=== PATIENT | male | born 1955 | race Two or more races ===

== ENCOUNTER 2024-02-24 06:40 | Emergency (ER) | payer MEDICARE, OTHER ==
[2024-02-24] MEDS ORDERED: Nitroglycerin 0.4 MG TAB 1 EACH ONE (06:55)
[2024-02-24] MEDS ORDERED: Aspirin Chewable 81 MG TAB ONE (06:55)
[2024-02-24] MEDS ORDERED: Heparin 25,000 units/D5W 500 ML ONE (07:13)
[2024-02-24] MEDS ORDERED: Heparin 10,000 UNITS/ 10 ML VIAL ONE (07:13)
[2024-02-24] MEDS ORDERED: Sodium Chloride 0.9% 1,000 ML ONE (07:14)
[2024-02-24 07:21] LABS: INR-International Normal Ratio 0.9; Prothrombin Time 12.4 sec (12.0-14.7)
[2024-02-24 07:30] LABS: ALT (SGPT) 21 U/L (8-55); AST (SGOT) 22 U/L (5-34); Albumin 3.7 g/dL (3.4-4.8); Alkaline Phosphatase 52 U/L (40-110); Anion Gap 12 mmol/L (10-20); BUN (Urea Nitrogen) 22 mg/dL (8.4-25.7); Bilirubin, Total 0.4 mg/dL (0.2-1.2); Calc. Creatinine Clearance 0 mL/min (70-130); Calcium 9.2 mg/dL (7.8-10.44); Carbon Dioxide 23 mmol/L (23-31); Chloride 110 mmol/L (98-107); Estimated GFR 82; Globulin 3.1 g/dL (2.4-3.5); Glucose 141 mg/dL (80-115); Potassium 4.2 mmol/L (3.5-5.1); Protein, Total 6.8 g/dL (5.8-8.1); Sodium 141 mmol/L (136-145)
[2024-02-24 07:31] LABS: Troponin I Less than 0.010 ng/mL (< 0.028)
[2024-02-24 07:39] LABS: PTT 23.4 sec (22.9-36.1)
[2024-02-24 07:49] LABS: Band 6 % (5-11); Eosinophils 1 % (0-10); Hematocrit 44.8 % (42.0-52.0); Lymphocytes 32 % (21-51); MDiff Complete? YES; Mean Corpuscular HGB CONC 31.2 g/dL (32.0-36.0); Mean Corpuscular Hemoglobin 29.6 pg (27.0-31.0); Mean Corpuscular Volume 94.8 fl (78.0-98.0); Mean Platelet Volume 7.5 fL (7.4-10.4); Monocytes 6 % (0-10); Neutrophil 54 % (42-75); Platelet Adequacy Comment Appears Adequate; Platelet Count 245 10x3/uL (130-400); RBC Distribution Width 13.8 % (11.5-14.5); Red Blood Cell (RBC) Count 4.73 mill/uL (4.70-6.10); White Blood Cell (WBC) Count 14.3 10x3/uL (4.8-10.8)
== END 2024-02-24 07:29 | disposition short-term general hospital (02) ==
LOC: MADERS 06:40
DX: I21.29 ST elevation (STEMI) myocardial infarction involving other sites (principal); F17.210 Nicotine dependence, cigarettes, uncomplicated
CPT/HCPCS: 80053; 83880; 84484; 85025; 85610; 85730; 93005; 94760; 96374; 96376; J1644; J7030

== ENCOUNTER 2025-02-24 09:03 | Outpatient (CLI) | payer MEDICARE ==
[2025-02-24 09:30] LABS: ALT (SGPT) 51 U/L (Less than 45); AST (SGOT) 36 U/L (11-34); Albumin 3.9 g/dL (3.1-4.5); Alkaline Phosphatase 59 U/L (40-110); Anion Gap 13 mmol/L (10-20); BUN (Urea Nitrogen) 19 mg/dL (8.4-25.7); Bilirubin, Total 0.4 mg/dL (0.3-1.2); Calc. Creatinine Clearance 0 mL/min (70-130); Calcium 9.2 mg/dL (7.8-10.44); Carbon Dioxide 24 mmol/L (23-31); Cardiac Risk 3.1 (Less than 4.5); Chloride 109 mmol/L (98-107); Cholesterol 105 mg/dl (< 200 Desired); Globulin 3.8 g/dL (2.4-3.5); Glucose 105 mg/dL (80-115); HDL Cholesterol 34 mg/dL (>60 Neg Risk); LDL Cholesterol, Calculated 42 mg/dL; Potassium 4.3 mmol/L (3.5-5.1); Sodium 142 mmol/L (136-145); Triglycerides 146 mg/dL (Less than 150)
== END 2025-02-24 09:04 | disposition home or self-care (01) ==
LOC: MADLAB 09:03
PROVIDERS: ATTEND Nurse Practitioner Family
DX: I25.10 Atherosclerotic heart disease of native coronary artery without angina pectoris (principal)
CPT/HCPCS: 36415; 80053; 80061